=== PATIENT | male | born 1970 | race Two or more races ===

== ENCOUNTER 2022-03-24 17:27 | Inpatient (IN) | payer OTHER ==
[2022-03-24 19:27] VITALS: BMI 22.1
[2022-03-24] MEDS ORDERED: BENZOCAINE/MENTHOL (CHLORASEPTIC ) LOZENGE MM PRN (21:43)
[2022-03-24] MEDS ORDERED: LOPERAMIDE HCL 2 MG CAPSULE PO PRN (21:43)
[2022-03-24] MEDS ORDERED: P-EPHED 60MG/TRIPROLIDI 2.5MG TABLET PO PRN (21:43)
[2022-03-24] MEDS ORDERED: MAG HYDROX/AL HYDROX/SIMETH 30 ML UNIT-DOSE CUP PO PRN (21:43)
[2022-03-24] MEDS ORDERED: NALOXONE HCL (KLOXXADO) 8 MG SPRAY NS PRN (21:43)
[2022-03-24] MEDS ORDERED: IBUPROFEN 400 MG TABLET (FP) PO PRN (21:43)
[2022-03-24] MEDS ORDERED: NICOTINE POLACRILEX 2 MG GUM BUC PRN (21:43)
[2022-03-24] MEDS ORDERED: guaiFENesin 200 MG/10 ML 10 ML UNIT-DOSE CUPS PO PRN (21:43)
[2022-03-24] MEDS ORDERED: ACETAMINOPHEN 325 MG TABLET (FP) PO PRN ×2 (21:43)
[2022-03-24] MEDS ORDERED: MAGNESIUM HYDROX 2400MG/30ML ORAL SUSPENSION 30 ML CUP PO PRN (21:43)
[2022-03-24] MEDS ORDERED: DICYCLOMINE HCL 10 MG CAPSULE PO PRN (21:43)
[2022-03-24] MEDS ORDERED: NALOXONE HCL 0.4 MG/ML VIAL IM PRN (21:43)
[2022-03-24] MEDS ORDERED: BISMUTH SUBSALICYLATE 524 MG/30 ML PO PRN (21:43)
[2022-03-24] MEDS ORDERED: methaDONE HCL 10 MG TABLET (FOR DETOX USE ONLY) PO ONE (21:45)
[2022-03-24] MEDS ORDERED: methaDONE HCL 10 MG TABLET (FOR DETOX USE ONLY) ONE (22:11)
[2022-03-24] MEDS: THIAMINE HCL 100 MG TABLET (FP) PO SCH (23:37)
[2022-03-24] MEDS: MELATONIN 5 MG TABLETS PO PRN (23:38)
[2022-03-24] MEDS: cloNIDine HCL 0.1 MG TABLET PO PRN (23:38)
[2022-03-25] MEDS: diazePAM 5 MG TABLET PO PRN ×4 (05:45→22:16)
[2022-03-25] MEDS: METHOCARBAMOL 500 MG TABLET PO PRN ×2 (05:45→15:05)
[2022-03-25] MEDS: hydrOXYzine PAMOATE 25 MG CAPSULE (FP) PO PRN ×2 (10:16→20:38)
[2022-03-25] MEDS: PRENATAL VITAMINS W/ FOLIC ACID TABLET (FP) PO SCH (10:16)
[2022-03-25] MEDS: ONDANSETRON *ODT* 4 MG TABLET SL PRN (10:20)
[2022-03-25 10:43] LABS: CALCIUM 9.4 mg/dL (8.5-10.1)
[2022-03-25 10:45] LABS: ALBUMIN 3.4 g/dl (3.4-5.0); BLOOD UREA NITROGEN 21.3 mg/dL (7-18)
[2022-03-25 10:48] LABS: TOT PROT 7.3 g/dl (6.4-8.2)
[2022-03-25 10:49] LABS: BILIRUBIN,TOTAL 0.9 mg/dL (0.2-1)
[2022-03-25 10:52] LABS: HEMATOCRIT 41.9 % (35.4-49); HEMOGLOBIN 14.2 GM/dL (11.7-16.9); MCH 30.6 pg (25.7-33.7); MCHC 33.8 g/dl (32.0-35.9); MEAN CELL VOLUME 90.6 fl (80-96); PLATELET COUNT 273 10^3/uL (134-434); RBC 4.62 M/mm3 (4.00-5.60); RDW 13.5 % (11.9-15.9); WHITE BLOOD COUNT 6.6 K/mm3 (4.0-10.0)
[2022-03-25] MEDS: IBUPROFEN 600 MG TABLET (FP) PO PRN (15:05)
[2022-03-25] MEDS: cloNIDine HCL 0.1 MG TABLET PO PRN ×2 (17:23→23:13)
[2022-03-25] MEDS: THIAMINE HCL 100 MG TABLET (FP) PO SCH (22:16)
[2022-03-25] MEDS: risperiDONE 1 MG TABLET PO SCH (22:16)
[2022-03-25] MEDS: MELATONIN 5 MG TABLETS PO PRN (22:17)
[2022-03-26] MEDS: METHOCARBAMOL 500 MG TABLET PO PRN ×2 (01:11→09:11)
[2022-03-26] MEDS: diazePAM 5 MG TABLET PO PRN ×3 (05:14→22:17)
[2022-03-26] MEDS: hydrOXYzine PAMOATE 25 MG CAPSULE (FP) PO PRN (05:14)
[2022-03-26] MEDS: ONDANSETRON *ODT* 4 MG TABLET SL PRN (08:28)
[2022-03-26] MEDS: PRENATAL VITAMINS W/ FOLIC ACID TABLET (FP) PO SCH (09:11)
[2022-03-26] MEDS: IBUPROFEN 600 MG TABLET (FP) PO PRN ×2 (09:11→20:47)
[2022-03-26] MEDS: risperiDONE 1 MG TABLET PO SCH ×2 (09:14→22:17)
[2022-03-26] MEDS ORDERED: methaDONE HCL 10 MG TABLET (FOR DETOX USE ONLY) PO ONE (10:00)
[2022-03-26 21:15] VITALS: RESP 18
[2022-03-26] MEDS: THIAMINE HCL 100 MG TABLET (FP) PO SCH (22:17)
[2022-03-26] MEDS: cloNIDine HCL 0.1 MG TABLET PO PRN (22:17)
[2022-03-27 06:04] VITALS: TEMP 96.7
[2022-03-27] MEDS: PRENATAL VITAMINS W/ FOLIC ACID TABLET (FP) PO SCH (09:26)
[2022-03-27] MEDS: risperiDONE 1 MG TABLET PO SCH (09:26)
[2022-03-27 10:12] VITALS: BP 145/82; PULSE 88
== END 2022-03-27 09:45 | disposition home or self-care (01) | DRG 773 ==
LOC: YASAS 17:27 → Y6N 22:54
PROVIDERS: ADMIT Allergy & Immunology; ATTEND Surgery
PROC: HZ2ZZZZ Detoxification Services for Substance Abuse Treatment (ICD-10-PCS; principal; 2022-03-24)
DX: F11.23 Opioid dependence with withdrawal (principal); F14.20 Cocaine dependence, uncomplicated; F17.210 Nicotine dependence, cigarettes, uncomplicated; F20.9 Schizophrenia, unspecified; K29.70 Gastritis, unspecified, without bleeding; E86.0 Dehydration; R76.8 Other specified abnormal immunological findings in serum; R11.2 Nausea with vomiting, unspecified
CPT/HCPCS: 36415; 71046-TC-FY; 80053; 83690; 84484; 85025; 85027; 86593; 86780; 93005; 93010; 99285-25; C9803-CS; J2794; Q0162; U0003; U0005

== ENCOUNTER 2022-03-26 11:44 | Emergency (ER) | payer OTHER ==
[2022-03-26 12:07] VITALS: RESP 19; BMI 22.1
[2022-03-26] MEDS ORDERED: FAMOTIDINE 20 MG/50 ML IVPB 20 MG in PREMIX 50 IVPB ONE (13:25)
[2022-03-26] MEDS ORDERED: MAG HYDROX/AL HYDROX/SIMETH -MYLANTA- ORAL SUSPENSION PO ONE (13:25)
[2022-03-26] MEDS ORDERED: ONDANSETRON 4 MG/2 ML VIAL IVPB ONE (13:25)
[2022-03-26] MEDS ORDERED: ONDANSETRON 4 MG/2 ML VIAL ONE (13:44)
[2022-03-26] MEDS ORDERED: MAG HYDROX/AL HYDROX/SIMETH 30 ML UNIT-DOSE CUP ONE (13:44)
[2022-03-26] MEDS ORDERED: FAMOTIDINE 20 MG/50 ML IVPB 20 MG/50 ML MG IVPB ONE (13:44)
[2022-03-26 15:16] LABS: BASO % 0.3 % (0-2.0); EOS % 0.1 % (0-4.5); HEMATOCRIT 45.3 % (35.4-49); HEMOGLOBIN 14.8 GM/dL (11.7-16.9); LYMPH % 3.7 % (8-40); MCH 29.6 pg (25.7-33.7); MCHC 32.6 g/dl (32.0-35.9); MEAN CELL VOLUME 90.8 fl (80-96); MEAN PLT VOLUME 9.3 fl (7.5-11.1); MONO % 6.8 % (3.8-10.2); NEUT % 89.1 % (42.8-82.8); PLATELET COUNT 284 10^3/uL (134-434); RBC 4.99 M/mm3 (4.00-5.60); RDW 13.8 % (11.9-15.9); WHITE BLOOD COUNT 8.9 K/mm3 (4.0-10.0)
[2022-03-26 15:42] LABS: CALCIUM 9.6 mg/dL (8.5-10.1)
[2022-03-26 15:43] LABS: ALBUMIN 3.9 g/dl (3.4-5.0); BLOOD UREA NITROGEN 15.3 mg/dL (7-18)
[2022-03-26 15:47] LABS: BILIRUBIN,TOTAL 0.5 mg/dL (0.2-1); TOT PROT 8.6 g/dl (6.4-8.2)
[2022-03-26 18:04] VITALS: BP 110/68; PULSE 72; TEMP 97.9
== END 2022-03-26 19:00 ==
LOC: JER 11:44
PROC: 3E033GC Introduction of Other Therapeutic Substance into Peripheral Vein, Percutaneous Approach (ICD-10-PCS; principal; 2022-03-26)
PROC: 3E033GC Introduction of Other Therapeutic Substance into Peripheral Vein, Percutaneous Approach (ICD-10-PCS; 2022-03-26)
DX: R10.13 Epigastric pain (principal)
CPT/HCPCS: 36415; 71046-TC-FY; 80053; 83690; 84484; 85025; 93005; 93010; 99285-25